=== PATIENT | female | born 1955 | race Caucasian/White ===

== ENCOUNTER 2022-05-31 16:34 | Emergency (ER) | payer OTHER, MEDICAID | END 2022-05-31 18:13 | disposition home or self-care (01) | LOC: CSHERS 16:34 | DX: L03.115 Cellulitis of right lower limb (principal); E11.40 Type 2 diabetes mellitus with diabetic neuropathy, unspecified; E78.5 Hyperlipidemia, unspecified; I10 Essential (primary) hypertension ==

== ENCOUNTER 2022-07-07 14:42 | Emergency (ER) | payer OTHER, MEDICAID ==
[2022-07-07] MEDS ORDERED: Ketorolac Tromethamine 30 MG/ML VIAL ONE (17:52)
== END 2022-07-07 18:06 | disposition home or self-care (01) ==
LOC: CSHERS 14:42
DX: S09.90XA Unspecified injury of head, initial encounter (principal); M17.11 Unilateral primary osteoarthritis, right knee; E11.40 Type 2 diabetes mellitus with diabetic neuropathy, unspecified; I10 Essential (primary) hypertension; E78.00 Pure hypercholesterolemia, unspecified; M19.90 Unspecified osteoarthritis, unspecified site; Z79.899 Other long term (current) drug therapy; W18.09XA Striking against other object with subsequent fall, initial encounter
CPT/HCPCS: 70450; 96372; J1885

== ENCOUNTER 2022-08-20 18:34 | Emergency (ER) | payer OTHER, MEDICAID ==
[2022-08-20 19:33] LABS: #Basophils 0.1 10x3/uL (0.0-0.2); #Monocytes 0.4 10x3/uL (0.0-1.1); #Neutrophils 5.6 10x3/uL (1.5-8.4); %Basophils 0.7 % (0.0-2.0); %Eosinophils 0.4 % (0.0-6.0); %Lymphocytes 18.7 % (18.0-47.0); %Monocytes 5.6 % (0.0-10.0); %Neutrophils 73.9 % (40.0-75.0); Hemoglobin 13.8 g/dL (12.0-15.5); Mean Corpuscular Hemoglobin 28.5 pg (27.0-33.0); Mean Corpuscular Volume 86.2 fl (81.6-98.3); Platelet Count 213 10x3/uL (150-450); RBC Distribution Width 12.9 % (11.5-14.5); Red Blood Cell (RBC) Count 4.85 10x6/uL (3.90-5.03); White Blood Cell (WBC) Count 7.6 10x3/uL (3.5-10.5)
[2022-08-20] MEDS ORDERED: Diltiazem 125 MG/25 ML ONE (19:39)
[2022-08-20 19:46] LABS: PTT 24.2 sec (22.0-33.0)
[2022-08-20 19:58] LABS: Bilirubin Neg (Negative); Blood, Urine Negative (Negative); Clarity Clear (Clear); Glucose, Urine (Dipstick) Normal (Negative); Ketone, Urine 15 mg/dL (Negative); Leukocyte Negative (Negative); Nitrite Negative (Negative); Protein, Urine (Dipstick) 15 mg/dl (Neg-Trace); Urobilinogen Normal mg/dL (Less than 2)
[2022-08-20 19:59] LABS: ALT (SGPT) 22 U/L (8-55); AST (SGOT) 19 U/L (5-34); Albumin 4.1 g/dL (3.4-4.8); Alkaline Phosphatase 86 U/L (40-110); Anion Gap 14 mmol/L (10-20); BUN (Urea Nitrogen) 8 mg/dL (9.8-20.1); Bilirubin, Total 0.6 mg/dL (0.2-1.2); CK (CPK) 27 U/L (29-168); Calc. Creatinine Clearance 0 mL/min (70-130); Calcium 10.1 mg/dL (7.8-10.44); Carbon Dioxide 29 mmol/L (23-31); Chloride 100 mmol/L (98-107); Estimated GFR 80; Globulin 3.1 g/dL (2.4-3.5); Glucose 192 mg/dL (80-115); Lipase 32 U/L (8-78); Potassium 3.9 mmol/L (3.5-5.1); Protein, Total 7.2 g/dL (5.8-8.1); Sodium 139 mmol/L (136-145)
[2022-08-20] MEDS ORDERED: Ondansetron PF 4 MG/2 ML Vial ONE (20:04)
[2022-08-20 20:07] LABS: SARS-CoV-2 NAA Rapid Test Not Detected (NotDetected)
[2022-08-20] MEDS ORDERED: Enoxaparin Sodium 100 MG/ML SYRINGE ONE (20:17)
[2022-08-20] MEDS ORDERED: Aspirin Chewable 81 MG TAB ONE (20:17)
[2022-08-20] MEDS ORDERED: Mag-Al Plus 1200 MG/1200 MG/120 MG/30 ML UDCUP ONE (21:44)
[2022-08-20] MEDS ORDERED: Lidocaine Viscous Sol 2% 15 ml UD Cup ONE (21:44)
[2022-08-20] MEDS ORDERED: Magnesium 2 GM/50 ML BAG (IN WATER) ONE (22:02)
[2022-08-20 22:22] LABS: Magnesium 1.7 mg/dL (1.6-2.6)
== END 2022-08-21 00:01 | disposition short-term general hospital (02) ==
LOC: CSHERS 18:34
DX: I48.91 Unspecified atrial fibrillation (principal); E11.40 Type 2 diabetes mellitus with diabetic neuropathy, unspecified; I10 Essential (primary) hypertension; E78.5 Hyperlipidemia, unspecified; M19.90 Unspecified osteoarthritis, unspecified site; Z20.822 Contact with and (suspected) exposure to COVID-19
CPT/HCPCS: 70450; 71045; 81003; 82550; 83605; 83690; 83735; 84484; 85610; 85730; 93005; U0002; 80053; 84443; 85025; 96365; 96366; 96372; 96375; 96376; J1650; J2405; J3475

== ENCOUNTER 2023-01-17 15:49 | Outpatient (CLI) | payer OTHER, MEDICAID | END 2023-01-17 15:50 | disposition home or self-care (01) | LOC: CSHRAD 15:49 | PROVIDERS: ATTEND Family Medicine | DX: M25.552 Pain in left hip (principal); M16.12 Unilateral primary osteoarthritis, left hip ==

== ENCOUNTER 2023-09-27 12:25 | Outpatient (CLI) | payer OTHER, MEDICAID | END 2023-09-27 12:26 | disposition home or self-care (01) | LOC: CSHRAD 12:25 | PROVIDERS: ATTEND Family Medicine | DX: R05.9 Cough, unspecified (principal) | CPT/HCPCS: 71046 ==

== ENCOUNTER 2023-11-26 09:54 | Outpatient (CLI) | payer OTHER, MEDICAID | END 2023-11-26 09:55 | disposition home or self-care (01) | LOC: CSHCT 09:54 | PROVIDERS: ATTEND Internal Medicine | DX: R91.1 Solitary pulmonary nodule (principal) | CPT/HCPCS: 71250 ==

== ENCOUNTER 2024-05-05 11:59 | Outpatient (CLI) | payer MEDICARE, OTHER | END 2024-05-05 12:00 | disposition home or self-care (01) | LOC: CSHMAMMO 11:59 | PROVIDERS: ATTEND Family Medicine | DX: Z12.31 Encounter for screening mammogram for malignant neoplasm of breast (principal); Z80.3 Family history of malignant neoplasm of breast | CPT/HCPCS: 77063; 77067 ==

== ENCOUNTER 2024-05-08 10:11 | Outpatient (CLI) | payer MEDICARE, OTHER | END 2024-05-08 10:12 | disposition home or self-care (01) | LOC: CSHCT 10:11 | PROVIDERS: ATTEND Internal Medicine | DX: R91.1 Solitary pulmonary nodule (principal) | CPT/HCPCS: 71250 ==

== ENCOUNTER 2024-07-16 08:57 | Outpatient (CLI) | payer OTHER | END 2024-07-17 08:58 | disposition home or self-care (01) | LOC: CSHSLEEP 08:57 | PROVIDERS: ATTEND Internal Medicine | DX: G47.33 Obstructive sleep apnea (adult) (pediatric) (principal); R91.1 Solitary pulmonary nodule; R09.02 Hypoxemia | CPT/HCPCS: 95811 ==